=== PATIENT | female | born 1960 | race Caucasian/White ===

== ENCOUNTER → 2017-06-08 | Outpatient (CLI) | payer MEDICARE | LOC: KOH-I 09:00 | DX: M25.561 Pain in right knee (principal); S83.241A Other tear of medial meniscus, current injury, right knee, initial encounter | CPT/HCPCS: 73721 ==

== ENCOUNTER → 2022-04-25 | Outpatient (CLI) | payer MEDICARE | LOC: HEART 5 14:59 | DX: R20.2 Paresthesia of skin (principal); I73.9 Peripheral vascular disease, unspecified ==